=== PATIENT | female | born 1940 | race Two or more races ===

== ENCOUNTER 2020-04-02 12:48 | Outpatient (CLI) | payer OTHER | END 2020-04-02 13:00 | disposition home or self-care (01) | LOC: OFIC 805 12:48 | PROVIDERS: ATTEND Otolaryngology | DX: R04.0 Epistaxis (principal); R09.81 Nasal congestion ==

== ENCOUNTER → 2020-04-24 | Outpatient (CLI) | payer OTHER | END | disposition home or self-care (01) | LOC: OFIC 805 12:00 | PROVIDERS: ATTEND Otolaryngology | DX: R04.0 Epistaxis (principal); R09.81 Nasal congestion ==